=== PATIENT | male | born 1940 | race Caucasian/White ===

== ENCOUNTER 2017-02-27 18:15 | Inpatient (IN) ==
[2017-02-27] MEDS ORDERED: PANTOPRAZOLE 40 MG VIAL IV ONE (18:51)
[2017-02-27] MEDS ORDERED: 0.9 % SODIUM CHLORIDE 1,000 ML IV ONE (18:51)
[2017-02-27 19:41] LABS: Basophils # (Auto) 0 K/mcL (0.0-0.3); Basophils % (Auto) 0.3 % (0.0-2.0); Eosinophils # (Auto) 0 K/mcL (0.0-0.7); Eosinophils % (Auto) 0.5 % (0.0-7.0); Granulocytes % (Auto) 66.4 % (38.0-78.0); Mean Cell Volume 91.1 fL (80.0-100.0); Mean Corpuscular HGB Conc 33.1 g/dL (31.0-36.0); Mean Corpuscular Hemoglobin 30.2 pg (26.0-34.0); Monocytes # (Auto) 0.5 K/mcL (0.1-0.9); Monocytes % (Auto) 6.8 % (1.0-12.0); Platelet Count 286 K/mcL (140-440); Red Cell Distribution Width 14.8 % (11.5-14.5)
[2017-02-27 19:58] LABS: ALT/SGPT 11 U/l (0-40); Albumin 3.7 gm/dL (3.2-5.2); Albumin/Globulin Ratio 1.5 (1.0-2.3); Alkaline Phosphatase 56 U/L (39-117); Blood Urea Nitrogen 23 mg/dl (8-23)
--- NOTE | 2017-02-27 20:29 | Emergency Department Note ---
GI Bleed HPI - General Chief complaint: Rectal Bleed Stated complaint: rectal bleed Time Seen by Provider: 02/27/17 18:32 Source: patient Mode of arrival: wheelchair Limitations: no limitations - History of Present Illness HPI Narrative: 76-year-old male who is complaining of bright red blood per rectum for the last 4 days which is now turned into maroon tarry stools. He complains of dizziness and presyncope today. Decreased appetite. He actually had an upper endoscopy and colonoscopy [address] Linn which one polyp was removed at the cecum. He is on Eliquis for history of DVT and resumed that shortly after getting his scopes done. Yesterday he went and saw a doctor at [facility] who told him he had hemorrhoids. However today he is feeling worse and so comes to the ER He notes of history of belly bloating and discomfort for the last 6 months since getting a Conrado fundoplication done at [facility] - Related Data Home Medications Medication Instructions Recorded Confirmed Venlafaxine [Effexor] 75 mg PO BID 11/17/15 02/27/17 Apixaban [Eliquis] 0 mg PO DAILY 02/27/17 02/27/17 Omeprazole [PriLOSEC] 20 mg PO ACB 02/27/17 02/27/17 Allergies Allergy/AdvReac Type Severity Reaction Status Date / Time lorazepam [From Ativan] Allergy Verified 11/17/15 17:56 Review of Systems All systems ED: reviewed and negative except as stated. Past Medical History - Past Medical History Attestation: Yes: The following information was validated with the patient. Medical history: Reports: DVT, GERD, other (dVT right leg) Psychiatric history: Reports: bipolar Surgical history ED: Reports: herniorrhaphy, other (Conrado) - Social History smoking status: Former smoker Alcohol use: Reports: None Physical Exam No acute distress resting comfortably. Normocephalic atraumatic. Conjunctive are clear sclerae nonicteric. No nasal discharge or congestion. Oropharynx is pink and moist. Oropharynx is clear. Neck is supple without lymphadenopathy or thyromegaly. Heart is regular rate and rhythm no murmur appreciated. Lungs are clear to auscultation bilaterally without wheezes rales rhonchi or respiratory distress. Abdomen is soft mild diffuse tenderness but no peritoneal signs or guarding. He does have a midline diathesis from previous surgical incision as well as some scarring on his abdomen. Exam of the rectum shows internal hemorrhoid small amount of blood on it however he has significant maroon tarry stool. No pedal edema. +2 radial pulse. Alert oriented. No dysarthria or ataxia. Limitations: no limitations Course Vital Signs Temperature 96.9 F L 02/27/17 18:18 Pulse Rate 95 H 02/27/17 18:18 Respiratory Rate 16 02/27/17 18:18 Blood Pressure 121/74 02/27/17 18:18 Pulse Oximetry (%) 98 02/27/17 18:18 Temperature 98.4 F 02/28/17 04:00 Pulse Rate 75 02/28/17 04:00 Respiratory Rate 20 02/28/17 04:00 Blood Pressure 129/62 02/28/17 04:00 Pulse Oximetry (%) 98 02/28/17 04:00 GI Bleed - Lab Data Lab results reviewed: Yes I reviewed the patient's lab results. Result diagrams: 02/28/17 03:50 02/28/17 03:50 Lab Results 02/27/17 02/27/17 02/27/17 Range/Units 19:00 19:00 19:00 WBC 7.7 (4.5-11.0) K/mcL RBC 4.00 L (4.50-5.90) M/mcL Hgb 12.1 L (13.5-16.5) g/dL Hct 36.5 L (41.0-55.0) % MCV 91.1 (80.0-100.0) fL MCH 30.2 (26.0-34.0) pg MCHC 33.1 (31.0-36.0) g/dL RDW 14.8 H (11.5-14.5) % Plt Count 286 (140-440) K/mcL MPV 8.4 (7.4-10.4) fL Gran % 66.4 (38.0-78.0) % Lymph % (Auto) 26.0 (15.5-49.0) % Miner % (Auto) 6.8 (1.0-12.0) % Eos % (Auto) 0.5 (0.0-7.0) % Baso % (Auto) 0.3 (0.0-2.0) % Gran # 5.1 (1.8-8.0) K/mcL Lymph # (Auto) 2.0 (1.5-4.8) K/mcL Miner # (Auto) 0.5 (0.1-0.9) K/mcL Eos # (Auto) 0 (0.0-0.7) K/mcL Baso # (Auto) 0 (0.0-0.3) K/mcL PT 14.7 H (11.9-14.5) sec INR 1.1 (0.9-1.1) VBG Lactic Acid (0.5-2.2) mmol/L Sodium 138 (133-145) mmol/L Potassium 4.0 (3.3-5.1) mmol/L Chloride 101 (96-108) mmol/L Carbon Dioxide 23 (22-30) mmol/L Anion Gap 14.0 (8-16) BUN 23 (8-23) mg/dl Creatinine 1.3 H (0.7-1.2) mg/dl GFR Calculation 54 Glucose 104 (70-105) mg/dL Calcium 8.2 L (8.6-10.4) mg/dl Magnesium 2.0 (1.6-2.5) mg/dL Total Bilirubin 0.4 (0.0-1.0) mg/dL AST 13 (0-37) U/l ALT 11 (0-40) U/l Alkaline Phosphatase 56 (39-117) U/L Total Protein 6.1 (5.9-8.4) gm/dL Albumin 3.7 (3.2-5.2) gm/dL Globulin 2.4 (2.2-3.7) gm/dL Albumin/Globulin Ratio 1.5 (1.0-2.3) 02/27/17 Range/Units 19:00 WBC (4.5-11.0) K/mcL RBC (4.50-5.90) M/mcL Hgb (13.5-16.5) g/dL Hct (41.0-55.0) % MCV (80.0-100.0) fL MCH (26.0-34.0) pg MCHC (31.0-36.0) g/dL RDW (11.5-14.5) % Plt Count (140-440) K/mcL MPV (7.4-10.4) fL Gran % (38.0-78.0) % Lymph % (Auto) (15.5-49.0) % Miner % (Auto) (1.0-12.0) % Eos % (Auto) (0.0-7.0) % Baso % (Auto) (0.0-2.0) % Gran # (1.8-8.0) K/mcL Lymph # (Auto) (1.5-4.8) K/mcL Miner # (Auto) (0.1-0.9) K/mcL Eos # (Auto) (0.0-0.7) K/mcL Baso # (Auto) (0.0-0.3) K/mcL PT (11.9-14.5) sec INR (0.9-1.1) VBG Lactic Acid 2.3 H (0.5-2.2) mmol/L Sodium (133-145) mmol/L Potassium (3.3-5.1) mmol/L Chloride (96-108) mmol/L Carbon Dioxide (22-30) mmol/L Anion Gap (8-16) BUN (8-23) mg/dl Creatinine (0.7-1.2) mg/dl GFR Calculation Glucose (70-105) mg/dL Calcium (8.6-10.4) mg/dl Magnesium (1.6-2.5) mg/dL Total Bilirubin (0.0-1.0) mg/dL AST (0-37) U/l ALT (0-40) U/l Alkaline Phosphatase (39-117) U/L Total Protein (5.9-8.4) gm/dL Albumin (3.2-5.2) gm/dL Globulin (2.2-3.7) gm/dL Albumin/Globulin Ratio (1.0-2.3) Disposition 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 I discussed these above findings with Dr. Stock who felt that his hemorrhoid bleeding was not causing his symptoms and that the new tarry stools were actually a post polypectomy bleed. I then discussed his case with the hospitalist Dr. Ulrich who agreed to admit the patient with Dr. Stock consulted-they will do bowel prep and bring him in the hospital. Colonoscopy planned for tomorrow Disposition: Xfer As Inpt ([facility]) Condition: Serious
--- NOTE | 2017-02-27 21:54 | Internal Med History&Physical ---
Medical - H&P: HPI Patient information: Note initiated : 02/27/17 at 9:50 pm Service Date, if different from initiated Date: [] Patient: Slava Sim 76 y/o M admitted on for rectal bleed. Chief Complaint: Rectal bleeding History of present illness: Mr. 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 He chronically takes Elliquis secondary to history of DVTs. He resumed Postoperatively. He did well until this past (2 days ago) when he had a large amount of blood in the commode. It occurred on 2 occasions, then became bloody with darker stool. He went and was seen at [facility], he is noted to have bleeding hemorrhoid. He was told to hold his Elliquis that evening. He did not take his Elliquis as prescribed for that one dose, resumed at the following morning, yesterday. His last dose was this morning. Yesterday continued to have bloody/dark stools. This morning they were continuing and he became concerned and presented to the ED. Today's been lightheaded, when he gets up and walks around, or sits up abruptly. He denies any dyspnea, no chest pain or tightness or squeezing. He' s had no loss of consciousness. He has felt more bloated than usual (has felt bloated somewhat since surgery for Conrado fundoplication back in July). He's also noted an increase amount of gas in the last few days associated with the bleeding. He's had no abdominal pain. He's had no nausea or vomiting. Patient has been complaining of some bloating and gas since an open Conrado fundoplication back in July. The patient takes anticoagulation for history of DVTs. This happened several years ago, by his estimate 4-5 years ago. He apparently had one DVT with recurrence and has been on chronic anticoagulation since. There is no family history of DVT/PE. He has no history of coronary disease or angina, no history of stroke, no history of asthma or emphysema or chronic lung disease. No history of renal disease. Does have a history of reflux with Gaines's esophagus as noted. No history of diabetes, no history of thyroid disease. Review of systems: Except as noted in history of present illness, the remainder of 11 point review of systems negative. Medical - H&P: PMH Medical history: Bipolar disorder Gastroesophageal reflux with Gaines's esophagus, most recent biopsies negative History of recurrent DVT Ventral hernia at site of Conrado fundoplication surgical wound Surgical history: Conrado fundoplication, laparoscopically converted to open in July at [facility] Pertinent family history: No history of venous thrombosis. Social history: The patient does not smoke cigarettes, he does not consume alcohol. Medical - H&P: Meds Home Medications Medication Instructions Recorded Confirmed Type Omeprazole [PriLOSEC] 20 mg PO DAILY 11/17/15 02/27/17 History Venlafaxine [Effexor] 75 mg PO BID 11/17/15 02/27/17 History Apixaban [Eliquis] 0 mg PO DAILY 02/27/17 02/27/17 History Allergies Allergy/AdvReac Type Severity Reaction Status Date / Time lorazepam [From Ativan] Allergy Verified 11/17/15 17:56 Medical - H&P: Exam - Constitutional Vitals: Temp Pulse Resp BP Pulse Ox 96.9 F L 71 16 136/86 100 02/27/17 18:18 02/27/17 21:23 02/27/17 18:18 02/27/17 21:02 02/27/17 21:23 Exam: General: Alert, in no acute distress HEENT: Normocephalic. Pupils are equally round and reactive to light. Sclera are anicteric. No conjunctival injection. Oropharynx is with moist mucous membranes, no lip or gum lesions. Tongue is midline. Neck: Supple, no meningismus. No thyromegaly. Chest: Clear to auscultation bilaterally with no rales or wheezes. No accessory muscle use. Cardiovascular: Regular rate and rhythm without murmur gallop or rub. Carotid pulses are 2+ without bruit. There is no lower extremity edema. JVP is normal. Abdomen: Soft, nontender without guarding or rebound. Large ventral hernia is present. Active bowel sounds. No hepatosplenomegaly. Rectal exam per GI shows dark/maroon stool. Skin: Warm, dry. No rash. Skin turgor is normal Musculoskeletal: No joint erythema or tenderness. Normal range of motion in the upper and lower extremities. Strength 5/5 in upper and lower extremities. Digits without cyanosis or clubbing. Neuro: Alert, oriented X3. Cranial nerves II through XII grossly intact. Sensation intact to light touch. DTR 3+ in the upper and lower extremity. Psychiatric: Orientation is normal. Displays insight into condition. Speech is moderately pressured. Medical - H&P: Reslt - Labs CBC & Chem 7: 02/27/17 19:00 02/27/17 19:00 Labs: Short CBC 02/27/17 Range/Units 19:00 WBC 7.7 (4.5-11.0) K/mcL Hgb 12.1 L (13.5-16.5) g/dL Hct 36.5 L (41.0-55.0) % Plt Count 286 (140-440) K/mcL BMP 02/27/17 19:00 Sodium 138 Potassium 4.0 Chloride 101 Carbon Dioxide 23 BUN 23 Creatinine 1.3 H Glucose 104 Calcium 8.2 L Liver Function 02/27/17 Range/Units 19:00 Total Bilirubin 0.4 (0.0-1.0) mg/dL AST 13 (0-37) U/l ALT 11 (0-40) U/l Alkaline Phosphatase 56 (39-117) U/L Albumin 3.7 (3.2-5.2) gm/dL Medical - H&P: A/P (1) Post-polypectomy bleeding Current visit: Yes Status: Acute (2) GERD (gastroesophageal reflux disease) Current visit: Yes Status: Acute (3) Bipolar 1 disorder Current visit: Yes Status: Acute (4) History of DVT of lower extremity Current visit: Yes Status: Acute - Narrative A/P Narrative: 76-year-old male with polypectomy on February 18, now presents with 3 days of rectal bleeding. This is in the setting of taking Eliquis for history of deep venous thromboses. Rectal bleeding. Suspected post-polypectomy bleeding given the timeline, likely worsened by anticoagulation. Patient is lightheaded, though hemodynamically currently stable and hemoglobin is 12. Certainly at risk for hemodynamic instability. The patient is seen in the ED with Dr. Stock who plans colonoscopy tomorrow. Plan: 1. Inpatient admission, anticipate minimum 2 nights in the hospital for preparation and post treatment monitoring 2. Follow hemoglobin 3. Type and screen 4. Bowel prep with magnesium citrate, MiraLAX every hour 4 doses. Repeated MiraLAX and Dulcolax orally at 0600 5. Clear liquids until 0600 6. Hold Eliquis History of deep venous thrombosis. At low risk for recurrent thrombosis off of anticoagulation during GI bleed Plan: Bilateral SCDs for DVT prophylaxis. Gastroesophageal reflux with a history of Gaines's. Recent endoscopy with biopsies negative for dysplasia Plan: Continue PPI. Bipolar disorder. Speech is a bit pressured, but no symptoms of pro. Plan: Continue venlafaxine. CODE STATUS discussed with the patient, he is full code. Prophylaxis: PPI and SCDs.
[2017-02-27] MEDS ORDERED: MAGNESIUM CITRATE 300 ML ORAL.SOL PO ONE (21:59)
[2017-02-27] MEDS ORDERED: ONDANSETRON 4 MG/2 ML VIAL IV PRN (21:59)
[2017-02-27] MEDS ORDERED: ACETAMINOPHEN 325 MG TABLET PO PRN (21:59)
[2017-02-27] MEDS: 0.9 % SODIUM CHLORIDE 1,000 ML IV SCH (22:10)
[2017-02-27] MEDS: POLYETHYLENE GLYCOL 3350 17 GM PACKET PO SCH ×2 (22:13→23:12)
--- NOTE | 2017-02-27 23:22 | Consultation ---
DATE OF CONSULTATION: 02/27/2017 Gastroenterology consultation note Dictated and consult done on 02/27/2017 CHIEF COMPLAINT: Rectal bleeding. HISTORY OF PRESENT ILLNESS: The patient is a 76-year-old white male with a remote history of recurrent DVTs of the lower extremities. He used to be on Coumadin and now is on Eliquis. Earlier this year he underwent a fundoplication performed by Dr. Jeison Manzano at [facility] for GERD with Gaines's esophagus. The patient has multiple complaints following the abdominal surgery with complaints of gas and bloating and required a large incision of the midline abdomen. The reason is not clear to me, but for some reason he was advised to have an upper endoscopy, but also colonoscopy performed for the apparent upper GI complaints. Dr. Hu did perform a colonoscopy on 02/18/2017 and the only data I have is from the pathology report. On that, there was mention of diverticulosis, hemorrhoids, and a cecal polyp. The cecal polyp was removed and submitted in 5 pieces to pathology. The pieces were 0.1 to 0.8 cm in diameter. 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 The patient did not have rectal bleeding in the days immediately following colonoscopy, but on 02/25/2017 he went to [facility] and he tells me that he reported 2 large puddles of blood per rectum on that day. He was advised to hold his Eliquis that night only, which he did, and was released home. On 02/26/2017, he again passed gross blood per rectum and began feeling weak and dizzy, although he did not pass out. When he passed some more blood earlier today and felt weaker again, he became worried and feared that he could not wait until next week to be seen again, so he came to the [facility] Emergency Room. The Emergency Room doctor contacted me today and was thinking that he might have a hemorrhoidal bleed, but from the history provided I certainly am suspicious of polypectomy bleed from the cecal site. The patient denies abdominal pain other than gassy distention, especially before he passes a bloody bowel movement. PAST MEDICAL HISTORY: Gaines's esophagus as evidenced by the pathology reports submitted earlier this year. He also has bipolar affective disorder and history of DVTs of the lower extremities. PAST SURGICAL HISTORY: Significant for the fundoplication earlier this year by Dr. Manzano. The patient is a tangential historian. I am wondering whether he initially had a laparoscopic attempt at fundoplication and then had to be converted to open procedure or whether he had complications that required a long midline abdominal incision. In any event, he did have fundoplication achieved and he now has what appears to be a ventral hernia. FAMILY HISTORY: Negative for smoking or alcohol of any significant degree. . PHYSICAL EXAMINATION: GENERAL: The patient is awake and alert. He stammers a lot and is difficult to follow his history as he is tangential and it is difficult to keep him on track. He is pleasant and cooperative. He is coherent. SKIN: Without stigmata of chronic liver disease. HEENT: Airway is patent. LUNGS: Clear bilaterally to auscultation. CARDIAC: Regular rhythm without gallop. ABDOMEN: Soft and moderately protuberant. No evident ascites. There is a long midline abdominal incision with mild erythema extending along its length. There appears to be a ventral hernia which is very easily reducible; in fact, it reduces spontaneously. No hepatosplenomegaly. No mass. I performed a rectal exam in the emergency room today and found that there is some burgundy blood and mucus on my examining finger. No rectal mass. EXTREMITIES: With chronic venous changes of the lower extremities. LABORATORY STUDIES: Hemoglobin is 12.1. BUN is 23. Other laboratory studies reviewed. ASSESSMENT AND RECOMMENDATIONS: This patient almost certainly has a post-polypectomy bleed from the cecal polypectomy performed on 02/18/2017. He is at risk not only by virtue of having had a polypectomy, but by being on Eliquis of course. He took the Eliquis yesterday and again this morning. My recommendation is to prep his colon overnight tonight. Hold Eliquis until further notice. I will plan colonoscopy at 9:00 a.m. tomorrow with intention of placing hemostatic clips at the cecal polypectomy site. The patient is being admitted by the hospitalist service. I anticipate that the hemoglobin will drop significantly from the initial 12.1 as he equilibrates. JASMIN:vannesa Job ID: [id number] Doc ID: [id number] Grupo Malcolm NP
[2017-02-28] MEDS: POLYETHYLENE GLYCOL 3350 17 GM PACKET PO SCH ×2 (00:08→01:13)
[2017-02-28] MEDS: 0.9 % SODIUM CHLORIDE 1,000 ML IV SCH ×2 (02:55→13:21)
[2017-02-28 05:53] LABS: Basophils # (Auto) 0 K/mcL (0.0-0.3); Basophils % (Auto) 0.5 % (0.0-2.0); Eosinophils # (Auto) 0.1 K/mcL (0.0-0.7); Eosinophils % (Auto) 1.4 % (0.0-7.0); Granulocytes % (Auto) 57.4 % (38.0-78.0); Lymphocytes # (Auto) 2.4 K/mcL (1.5-4.8); Lymphocytes % (Auto) 33.6 % (15.5-49.0); Mean Cell Volume 90.1 fL (80.0-100.0); Mean Corpuscular HGB Conc 34.2 g/dL (31.0-36.0); Mean Corpuscular Hemoglobin 30.8 pg (26.0-34.0); Monocytes # (Auto) 0.5 K/mcL (0.1-0.9); Monocytes % (Auto) 7.1 % (1.0-12.0); Platelet Count 252 K/mcL (140-440); Red Cell Distribution Width 14.6 % (11.5-14.5)
[2017-02-28] MEDS ORDERED: POLYETHYLENE GLYCOL 3350 17 GM PACKET PO ONE (06:00)
[2017-02-28] MEDS ORDERED: BISACODYL 5 MG TABLET PO ONE (06:00)
[2017-02-28 06:22] LABS: Blood Urea Nitrogen 20 mg/dl (8-23)
[2017-02-28] MEDS: OMEPRAZOLE 20 MG CAPSULE PO SCH ×2 (07:49→13:43)
[2017-02-28] MEDS ORDERED: KETAMINE 10 MG/ML ML IV PRN (08:02)
[2017-02-28] MEDS ORDERED: MIDAZOLAM 2 MG/2 ML VIAL IV SCH (08:15)
[2017-02-28] MEDS ORDERED: PROPOFOL 200 MG/20 ML VIAL IV SCH (08:15)
[2017-02-28] MEDS ORDERED: MIDAZOLAM 2 MG/2 ML VIAL ONE (08:42)
[2017-02-28] MEDS ORDERED: PROPOFOL 20 ML IV ONE ×2 (08:42)
[2017-02-28] MEDS ORDERED: VENLAFAXINE 75 MG TABLET PO SCH (09:00)
[2017-02-28] MEDS ORDERED: GLUCAGON,HUMAN RECOMBINANT 1 MG VIAL IV ONE (09:31)
[2017-02-28 12:42] LABS: Blood Urea Nitrogen 18 mg/dl (8-23)
[2017-02-28] MEDS ORDERED: ONDANSETRON 4 MG/2 ML VIAL IV PRN (15:12)
[2017-02-28] MEDS ORDERED: ACETAMINOPHEN 325 MG TABLET PO PRN (15:12)
[2017-02-28 19:01] LABS: Blood Urea Nitrogen 16 mg/dl (8-23)
[2017-02-28] MEDS: VENLAFAXINE 75 MG TABLET PO SCH (21:10)
[2017-02-28] MEDS ORDERED: traZODone HCL 50 MG TABLET ONE (21:17)
--- NOTE | 2017-02-28 23:01 | Internal Med Progress Note ---
Medical - PN: Subj Patient information: Note initiated : 02/28/17 at 11:01 pm Service Date, if different from initiated Date: [] Patient: Slava Sim 76 y/o M admitted on 02/27/17 for rectal bleed. Chief Complaint: f/u GI bleed Interval history: Feb 27 Mr. 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 He chronically takes Elliquis secondary to history of DVTs. He resumed Postoperatively. He did well until this past (2 days ago) when he had a large amount of blood in the commode. It occurred on 2 occasions, then became bloody with darker stool. He went and was seen at [facility], he is noted to have bleeding hemorrhoid. He was told to hold his Elliquis that evening. He did not take his Elliquis as prescribed for that one dose, resumed at the following morning, yesterday. His last dose was this morning. Yesterday continued to have bloody/dark stools. This morning they were continuing and he became concerned and presented to the ED. Feb 28 Underwent colonoscopy this morning, had ulcer in the cecum with vessel present. This was clipped 2. Had a fair amount of old blood in the colon. This likely is the source of his bleeding. Throughout the day has done well. No longer lightheaded. - Constitutional Vitals: Vital Signs Temp Pulse Resp BP Pulse Ox 97.4 F 83 18 117/64 98 02/28/17 20:00 02/28/17 20:00 02/28/17 20:00 02/28/17 20:00 02/28/17 20:00 Period Temp Pulse Resp BP Sys/Michael Pulse Ox Last 24 Hr 97.4 F-98.7 F 64-83 18-20 76-140/38-65 97-100 Intake and Output 02/28/17 02/28/17 03/01/17 13:59 21:59 05:59 Intake Total 1620 / 1620 600 / 600 Output Total 450 / 450 Balance 1620 / 1620 150 / 150 Weight 205 lb 8 oz 207 lb Patient Weight 03/01/17 05:59 Weight 207 lb Intake & Output: Intake & Output 02/28/17 02/28/17 03/01/17 13:59 21:59 05:59 Intake Total 1620 / 1620 600 / 600 Output Total 450 / 450 Balance 1620 / 1620 150 / 150 Weight 205 lb 8 oz 207 lb Intake: IV 1000 / 1000 Sodium Chloride 0.9% 1,000 ml @ 1000 / 1000 100 mls/hr IV .Q10H [facility] Rx#: [id number] Oral 620 / 620 600 / 600 Output: Void Amount 450 / 450 Other: Meal Lunch Dinner Percent of Meal Consumed 100% 100% Exam: General: In bed in good spirits, no acute distress Chest: Clear, respirations unlabored Cardiovascular: Regular, no edema Abdomen: Soft, nontender, active bowel sounds Neuro: Alert, oriented 3, nonfocal Medical - PN: Obj Da - Labs CBC & Chem 7: 02/28/17 19:00 02/28/17 18:06 Labs: Abnormal Lab Results 02/28/17 02/28/17 02/28/17 19:00 18:06 12:00 RBC Hgb 10.8 L Hct 31.9 L RDW PT VBG Lactic Acid Creatinine Glucose 109 H 112 H Calcium 7.8 L 7.6 L 02/28/17 02/28/17 02/27/17 03:50 03:50 19:00 RBC 3.50 L Hgb 10.8 L Hct 31.5 L RDW 14.6 H PT VBG Lactic Acid 2.3 H Creatinine Glucose Calcium 7.6 L 02/27/17 02/27/17 02/27/17 19:00 19:00 19:00 RBC 4.00 L Hgb 12.1 L Hct 36.5 L RDW 14.8 H PT 14.7 H VBG Lactic Acid Creatinine 1.3 H Glucose Calcium 8.2 L Meds: Medications Acetaminophen (Tylenol) 650 mg PO Q6HP PRN PRN Reason: PAIN/FEVER > 101 Last Admin: 02/28/17 18:39 Dose: 650 mg Omeprazole (Prilosec) 20 mg PO ACB [facility] Ondansetron HCl (Zofran) 4 mg IV Q4HP PRN PRN Reason: Nausea And Vomiting Trazodone HCl (Desyrel) 100 mg PO HSP PRN PRN Reason: Insomnia Venlafaxine HCl (Effexor) 75 mg PO BID DOM Last Admin: 02/28/17 21:10 Dose: Not Given Medical - PN: A/P - Time Spent With Patient Total time spent is greater than 50% in coordination of care (as documented) at patient's floor/unit and/or counseling patient: (1) Post-polypectomy bleeding Status: Acute Current Visit: Yes (2) GERD (gastroesophageal reflux disease) Status: Acute Current Visit: Yes (3) Bipolar 1 disorder Status: Acute Current Visit: Yes (4) History of DVT of lower extremity Status: Acute Current Visit: Yes - Narrative A/P Narrative: 76-year-old male with polypectomy on February 18, now presents with 3 days of rectal bleeding. This is in the setting of taking Eliquis for history of deep venous thromboses. Rectal bleeding. Colonoscopy consistent with post-polypectomy bleeding, ulcer with vessel in cecum now clipped. Plan: advance diet to regular, continue to hold Eliquis, monitor hemoglobin and hematocrit for the next 24 hours. History of deep venous thrombosis. At low risk for recurrent thrombosis off of anticoagulation during GI bleed Plan: Bilateral SCDs for DVT prophylaxis. Gastroesophageal reflux with a history of Gaines's. Recent endoscopy with biopsies negative for dysplasia Plan: Continue PPI. Bipolar disorder. Speech is a bit pressured, but no symptoms of pro. Plan: Continue venlafaxine.
[2017-03-01 01:34] LABS: Blood Urea Nitrogen 15 mg/dl (8-23)
[2017-03-01 07:06] LABS: Blood Urea Nitrogen 13 mg/dl (8-23)
[2017-03-01] MEDS ORDERED: OMEPRAZOLE 20 MG CAPSULE PO SCH (07:30)
[2017-03-01] MEDS: VENLAFAXINE 75 MG TABLET PO SCH (08:17)
--- NOTE | 2017-03-01 10:43 | Discharge Summary ---
Medical - DS: Prov Patient information: Note initiated : 03/01/17 at 10:39 am Service Date, if different from initiated Date: [] Patient: Slava Sim 76 y/o M admitted on 02/27/17 for rectal bleed. Date of admission: 02/27/17 21:58 Discharge date: 03/01/17 Primary care physician: Tania Malcolm Admitting clinician: Lorin Schwartz Consults: 02/27/17 20:00 Consult to Physician [CONS] Routine Comment: Consulting Provider: Grupo Stock Reason For Exam: Physician to Consult Discharging clinician: Lorin Schwartz Medical - DS: Meds - Discharge Medications Active and Home Medications: Home Medications Venlafaxine [Effexor] 75 mg PO BID 11/17/15 [History Confirmed 02/27/17 Last Taken 02/27/17] Apixaban [Eliquis] 0 mg PO DAILY 02/27/17 [History Confirmed 02/27/17 Last Taken 02/27/17 08:00] Omeprazole [PriLOSEC] 20 mg PO ACB 02/27/17 [History Confirmed 02/27/17 Last Taken 02/27/17] Medical - DS: Hosp Hospital course: Feb 27 Mr. 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 He chronically takes Eliquis secondary to history of DVTs. He resumed Postoperatively. He did well until this past (2 days ago) when he had a large amount of blood in the commode. It occurred on 2 occasions, then became bloody with darker stool. He went and was seen at [facility], he is noted to have bleeding hemorrhoid. He was told to hold his Eliquis that evening. He did not take his Eliquis as prescribed for that one dose, resumed at the following morning, yesterday. His last dose was this morning. Yesterday continued to have bloody/dark stools. This morning they were continuing and he became concerned and presented to the ED. Feb 28 Underwent colonoscopy this morning, had ulcer in the cecum with vessel present. This was clipped 2. Had a fair amount of old blood in the colon. This likely is the source of his bleeding. Throughout the day has done well. No longer lightheaded. Cruz 1 Continues to do well. Minimal blood with BM. Tolerating regular diet. Hemoglobin stable 10.610.8 range. No abdominal pain. Stable for discharge home. We will hold Eliquis until the end week. He already has follow-up scheduled with Dr. Hu's practice. He has been asked to keep that appointment. Discharge diagnosis: Lower GI bleed from cecal polypectomy site - Time Spent with Patient Total time spent providing and/or coordinating discharge services: Greater than 30 minutes Medical - DS: Exam - Constitutional Vitals: Vital Signs Temp Pulse Resp BP Pulse Ox 03/01/17 07:29 98 F 16 119/63 94 03/01/17 04:26 98.2 F 65 16 102/63 94 03/01/17 01:00 98.2 F 75 18 121/68 96 02/28/17 20:00 97.4 F 83 18 117/64 98 02/28/17 17:00 98 F 68 18 113/52 99 02/28/17 13:00 98.6 F 64 20 133/65 98 Intake and Output 02/28/17 03/01/17 03/01/17 21:59 05:59 13:59 Intake Total 600 / 600 200 / 200 Output Total 450 / 450 Balance 150 / 150 200 / 200 Intake: Oral 600 / 600 200 / 200 Output: Void Amount 450 / 450 Other: Meal Dinner Percent of Meal Consumed 100% # Voids 1 Weight 207 lb Additional comments: General: No acute distress, in good spirits Chest: Clear to auscultation, respirations unlabored Cardiovascular: Regular rate and rhythm, no peripheral edema Abdomen: Soft, nontender, normal bowel sounds Neuro: Alert, oriented, nonfocal Medical - DS: Data Procedures and tests throughout hospitalization: Colonoscopy with hemostatic clipping by Dr. Vázquez on 02/28/17: Colon was full of altered blood and clots. Mild to moderate left-sided diverticular disease. Minimal small internal hemorrhoids. At the cecum, a single ulcer with small raised vessel which was not bleeding. Two hemostatic clips were placed. Impression: #1 Cecal polypectomy site bleed, #2 mild to moderate diverticular disease Labs on day of discharge: Labs from last 24 hours 03/01/17 03/01/17 03/01/17 06:00 06:00 00:00 Hgb 10.6 L 10.8 L Hct 31.3 L 32.0 L Sodium 143 Potassium 4.1 Chloride 109 H Carbon Dioxide 24 Anion Gap 10.0 BUN 13 Creatinine 1.0 GFR Calculation 74 Glucose 112 H Calcium 7.8 L 03/01/17 02/28/17 02/28/17 00:00 19:00 18:06 Hgb 10.8 L Hct 31.9 L Sodium 142 138 Potassium 4.0 4.0 Chloride 108 105 Carbon Dioxide 23 24 Anion Gap 11.0 9.0 BUN 15 16 Creatinine 1.0 1.0 GFR Calculation 74 74 Glucose 113 H 109 H Calcium 7.8 L 7.8 L 02/28/17 12:00 Hgb Hct Sodium 136 Potassium 3.8 Chloride 104 Carbon Dioxide 22 Anion Gap 10.0 BUN 18 Creatinine 1.0 GFR Calculation 74 Glucose 112 H Calcium 7.6 L Medical - DS: A/P - Patient/Caregiver Discharge Instructions Activity: increase activity as tolerated Diet: Regular Diet Additional Instructions: Do not resume taking Eliquis until Mar 05. - Problem Maintenance (1) Post-polypectomy bleeding Status: Resolved (2) GERD (gastroesophageal reflux disease) Status: Chronic (3) Bipolar 1 disorder Status: Chronic (4) History of DVT of lower extremity Status: Chronic - Follow up Plan Follow up with: aTnia Malcolm ARNP [Primary Care Provider] - Shaina Mancia [Nurse Practitioner] - (As previously scheduled) Disposition: Home, Self-Care Prognosis: Good Rehab Potential: Good Overall status at discharge: patient is back to baseline
[2017-03-01] MEDS ORDERED: traZODone HCL 50 MG TABLET PO PRN (21:00)
--- NOTE | 2017-03-02 10:30 | Operative Note ---
DATE OF OPERATION: 02/28/2017 PROCEDURE: Colonoscopy with hemostatic clipping. [employer] MACHINE OPERATOR AND FINANCIAL SERVICES CONSULTANT: Grupo Stock M.D. ANESTHETIC USED: Propofol 760 mg IV. No Versed was used as the patient said that he had a prolonged amnesic period after Ativan use in the past. PREOPERATIVE DIAGNOSIS: Gross rectal bleeding with symptomatic anemia in a patient who had undergone polypectomy by Dr. Hu on 02/18/2017. The patient has been on Eliquis. Please see my consult note written last night for details. POSTOPERATIVE DIAGNOSES: 1. Cecal ulcer at polypectomy site identified and clipped with two hemostatic clips. 2. [id number] left-sided diverticulosis without evidence of bleeding. 3. Minimal internal hemorrhoids. DESCRIPTION OF PROCEDURE: Prior to the procedure, the patient provided his own informed consent. The patient was evaluated and considered medically fit for endoscopy. With the patient in the left lateral decubitus position, a rectal exam was performed. It was unremarkable. Thereafter, a colonoscope was advanced into the rectum under direct vision. The patient had received a bowel prep overnight. There was hardly any stool at all in the colon, but there was a copious amount of altered blood and clots. None of the clots were particularly large. I did not see any areas of fresh blood. The great majority of the time of the 50-minute colonoscopy was spent irrigating the colon on entry and withdrawal of the scope. I wanted to remove as much of the altered blood as possible so as to be able to determine whether the patient has rebleeding or whether he would pass previously shed blood. I did not see much diverticulosis on insertion of the scope, but that is probably because there was so much altered blood and clots. The exam was completed to the terminal ileum which appears normal. There is perhaps backwash of blood in the ileum. At the cecum, there is a large quantity of altered blood and clots, but after carefully irrigating and suctioning and using a total of 1 mg of glucagon to slow the motility of the colon, I identified only a single, fairly small ulcer less than a centimeter in diameter. It did not have any active bleeding, and there was no adherent clot. There is a small central prominence that perhaps represents the vessel from which he bled. Even though it was not bleeding, I did go ahead and place two hemostatic clips on the polypectomy site to close the defect and to prevent further bleeding, especially when the patient is resumed on Eliquis. Again, I very meticulously irrigated and suctioned away the colon using more than 2 liters of water. On withdrawal of the scope, I found no other polyps or any bleeding lesions. At the left side of the colon in the sigmoid and perhaps the distal descending colon, I did find a few diverticula, none of which had any clots or evidence of bleeding. I irrigated these as meticulously as I could. At the rectum, a retroflex view reveals minimal small internal hemorrhoids without evidence of bleeding. COMPLICATIONS: None immediate. RECOMMENDATIONS AND FOLLOWUP: 1. Hold Eliquis for another 72 hours if possible before resuming it. 2. Regular diet starting this afternoon. 3. Monitor hemoglobin and hematocrit for the next 24 hours before considering discharge home. Overnight, the patient's hemoglobin dropped modestly from 12.1 to 10.8. I anticipate that it will continue to drop further as he equilibrates. Okay with GI if the patient is discharged home in about 24 hours if he is stable during this period without evidence of further gross fresh rectal bleeding. [id number] Job ID: [id number] Doc ID: [id number] Grupo Malcolm NP
== END 2017-03-01 12:40 | disposition home or self-care (01) | DRG 921 ==
LOC: ED 18:15 → ICU 21:58
PROVIDERS: ADMIT Internal Medicine; ATTEND Internal Medicine